=== PATIENT | male | born 1985 | race African-American/Black ===

== ENCOUNTER 2017-03-11 15:57 | Emergency (ER) | payer OTHER ==
[~2017-03-11] VITALS: Ht 170.2 cm; Wt 96.7 kg
[2017-03-11] MEDS ORDERED: IBUPROFEN800 MG PO (16:49)
[2017-03-11 17:06] VITALS: BP 1126/92
== END 2017-03-11 17:22 ==
LOC: EME → EDBD 15:57 → EME 15:57
DX: G89.18 Other acute postprocedural pain (principal); M79.641 Pain in right hand; Z86.718 Personal history of other venous thrombosis and embolism
CPT/HCPCS: 99281; 99284